=== PATIENT | male | born 1950 | race Caucasian/White ===

== ENCOUNTER 2018-02-07 06:09 | Inpatient (IN) ==
[2018-02-07] MEDS ORDERED: Propofol Inj 500 MG/50 ML Vial ONE (06:18)
[2018-02-07] MEDS ORDERED: Ketamine Inj 50 MG/5 ML Syringe IV.PUSH ONE (06:18)
[2018-02-07] MEDS ORDERED: Bupivacaine/Epinephrine 0.5% Inj 50 ML Vial ONE (06:34)
[2018-02-07] MEDS ORDERED: Gelatin Size 100 Topical Foam ONE (06:34)
[2018-02-07] MEDS ORDERED: Thrombin Topical Soln 5,000 UNIT Vial TOPICAL ONE (06:34)
[2018-02-07] MEDS ORDERED: Chlorhexidine Gluconate 2% 1 Pack (2 Cloths) TOPICAL ONE (06:50)
[2018-02-07] MEDS ORDERED: Metoprolol Tartrate 25 MG Tablet PO ONE (06:50)
[2018-02-07] MEDS ORDERED: ceFAZolin 2 GM Premix Inj 2 GM/50 ML PIGGYBACK IV.SIG SCH (07:00)
[2018-02-07] MEDS ORDERED: Sodium Chlor 0.9% Inj 500 ML IV.SIG SCH (07:00)
[2018-02-07] MEDS ORDERED: Famotidine PF Inj 20 MG/2 ML Vial ONE (07:58)
[2018-02-07] MEDS ORDERED: Lidocaine PF 1% Inj 5 ML Syringe OTHER ONE (08:11)
[2018-02-07] MEDS ORDERED: Glycopyrrolate Inj 1 MG/5 ML Syringe IV.PUSH ONE (08:11)
[2018-02-07] MEDS ORDERED: Esmolol Bolus Inj 100 MG/10 ML Vial IV.PUSH ONE (08:11)
[2018-02-07] MEDS ORDERED: Phenylephrine/NS 1000 MCG/10ML Syringe IV.PUSH ONE (08:11)
[2018-02-07] MEDS ORDERED: Normosol-R pH 7.4 Inj 2,000 ML IV.CONT ONE (08:11)
[2018-02-07] MEDS ORDERED: Neostigmine Inj 5 MG/5 ML Syringe IV.PUSH ONE (08:11)
[2018-02-07] MEDS ORDERED: Magnesium Sulfate Inj 2 GM in Sodium Chlor 0.9% Inj 96 ML IV.SIG PRN (12:43)
[2018-02-07] MEDS ORDERED: Bisacodyl 10 MG Supp RECTAL PRN (12:43)
[2018-02-07] MEDS ORDERED: Aluminum/Magnesium/Simethacone Susp 30 ML UDC PO PRN (12:43)
[2018-02-07] MEDS ORDERED: Potassium Chlor 20 mEq Premix 20 MEQ/100 ML PIGGYBACK IV.SIG PRN (12:43)
[2018-02-07] MEDS ORDERED: Calcium Gluconate Inj 1 GM in Sodium Chlor 0.9% Inj 100 ML IV.SIG PRN (12:43)
[2018-02-07] MEDS ORDERED: Acetaminophen 325 MG Tablet PO PRN (12:43)
[2018-02-07] MEDS ORDERED: Menthol 5.8 MG Lozenge BUCCAL PRN (12:43)
[2018-02-07] MEDS ORDERED: Dextrose 50% in Water 50 ML Vial IV.PUSH PRN (12:49)
--- NOTE | 2018-02-07 12:56 | P.OP ---
- Preoperative Diagnosis (1) Chronic bilateral low back pain with bilateral sciatica (2) Lumbar stenosis with neurogenic claudication (3) Lumbar degenerative disc disease (4) Lumbar facet arthropathy Date of procedure: 02/07/18 Procedure: Lumbar L4-5 interbody fusion; L4-5 decompressive laminectomy; L4-5 pedicle screw fixation; L4-5 interbody cage placement; microsurgical technique Anesthesia: GETA Surgeon: Todd Walker MD Finance Effectiveness Manager: Mónica Lowry Estimated blood loss (mL): 200 Operation and Findings: This was a difficult case due to the patient body habitus and morbid obesity. The bwji-gi-[id number] details of the procedure, indications, alternatives, risks and potential complications were fully discussed with the patient. The patient fully understood. All the questions were answered. No guarantees were given. The patient voiced requesting the procedure and provided informed consents. The patient was offered the alternative of delaying the procedure and continuing with nonsurgical management. Prior to the procedure, the surgical incision was marked in the preoperative surgical holding room, and the procedure, risks, and potential complications revisited with the patient. Placement of electrodes for intraoperative neurophysiological monitoring was completed. The patient was taken to the operative room, and following induction of general anesthesia, endotracheal intubation was performed. A Diaz catheter, bilateral CHAYITO hose and sequential compression devices were placed and kept throughout the procedure. The patient was positioned prone, over a Clay table over a Nagi frame. All pressure in the preoperative surgical holding room points were carefully padded. The eyes were tapped shut after ointment was applied by the anesthesiologist to prevent corneal abrasion. A Juan C hugger was placed over the exposed lower body to maintain control of the core body temperature. The lumbar region was prepped and draped in the usual sterile fashion. Once the patient was positioned, a localizing cross-table lateral x-ray was performed with a C-arm. A left paramedian incision was outlined on the skin approximately 3cm from the midline. The skin incision made with a #10 blade. Small bleeders were controlled with the cautery. The dissection was then carried out into deeper planes and through the thoracolumbar fascia with a Bovie. The intermuscular septum was identified and the mucles were blunted dissected along the septum. The facets and transverse process at the left L4-5 levels were exposed and the proper anatomical landmarks were identified. A microsurgical self-retaining retractor was placed on the incision, and a localizing lateralizing cross-table x-ray was performed. Intraoperative microscope magnification used for further dissection. There was significant facet and ligamentum flavum hypertrophy noted. The left L4-5 medial facet was resected with a drill bit along with the lamina and there was severe foraminal and spinal stenosis from hypertrophied ligamentum flavum and facet along with disc protrusion central and eccentric to the right side which was decompressed. There was disc degeneration along with disc protrusion also leading to the foraminal stenosis. Epidural hemostasis was achieved with bipolar cautery and Gelfoam with thrombin. Subsequently entered into the disc space at the L4-5 level with a #15 blade and malathi were used for discectomy. I then placed PEEK cage packed with local autograft bone and more local autograft bone was packed adjacent to the cage in interspace for added interbody fusion. With placement of the cage, I was able to distract the interspace and opened up the foramen further bilaterally. This point we noted small dural leak less than 1 mm in the dorsal aspect of the thecal sac which was primarily repaired with 4-0 Nurolon stitches and with Valsalva maneuver no CSF leak was further evident. This was reinforced with compressed Gelfoam and subcutaneous fat graft. Subsequently in order to facilitate the fusion and provide stabilization, pedicle screw fixation was undertaken using [place] spine screws on entry point at the left L4 and L5 levels at the junction of the transverse process and facet in the pedicle into the body. Subsequently using AP and lateral fluoroscopy tap and screw placement. The screws were then connected with a josh and locked in place with caps. The construct appeared very secure at this point. The area was then copiously irrigated with Vancomycin solution and powder. The retractors were removed and the bipolar cautery used for hemostasis. The muscle fascia was then approximated using 2-0 Vicryl interrupted stitches and then 3-0 Vicryl subcuticular stitches also placed in interrupted fashion. The final skin closure was completed with Mastisol and Steri-Strips. A sterile dressing was then applied. The patient then turned in supine position, extubated and taken to recovery room. There were no intraoperative complications. All sponge and needle counts were correct at the end of procedure. Estimated blood loss about 200 ml.
[2018-02-07] MEDS ORDERED: fentaNYL Citrate Inj 100 MCG/2 ML Ampul ONE (13:06)
[2018-02-07] MEDS ORDERED: *morphine SULFATE 10 MG/ML PERIprocedure ONLY ONE ×2 (13:34→13:46)
--- NOTE | 2018-02-07 15:36 | XR ---
EXAM DATE: 02/07/2018 12:00 AM EDT AGE/SEX: 67 years / Male INDICATIONS: Fusion L4,L5 with screws and josh placement. CLINICAL DATA: This is the patient's initial encounter. Patient reports that signs and symptoms have been present for 1 day and indicates a pain score of Nonresponsive. MEDICAL/SURGICAL HISTORY: None. None. COMPARISON: No prior exams available for comparison. FINDINGS: Limited 2 projection examination of the lumbar spine reveals unilateral left-sided posterior pedicle screw and longitudinal bars are fixation across L4-5. There is slight retrolisthesis of L4 relative t o L5. The disc spacer appears satisfactorily positioned. The hardware is intact. CONCLUSION: Satisfactory operative appearance Electronically signed by: Raffaele Li MD 02/07/2018 3:34 PM EDT
[2018-02-07] MEDS: Morphine Inj 4 MG/ML Vial IV.PUSH PRN (17:16)
[2018-02-07] MEDS: Insulin NovoLIN Regular Correctional Sugar Inj SQ SCH ×2 (20:33→21:47)
[2018-02-07] MEDS: Senna/Docusate Sodium 8.6/50 MG Tablet PO SCH (21:54)
[2018-02-07 22:38] LABS: Baso % (Auto) 0.2 % (0.0-2.0); Hematocrit 33.1 % (39.0-51.0); Lymph # (Auto) 0.5 th/mm3 (1.0-4.8); Lymph % (Auto) 4.4 % (9.0-44.0); Mean Corpuscular HGB Conc 33.1 % (32.0-36.0); Mean Corpuscular Hemoglobin 30.3 pg (27.0-34.0); Mean Corpuscular Volume 91.3 fL (80.0-100.0); Mean Platelet Volume 7.1 fL (7.0-11.0); Mono # (Auto) 0.6 th/mm3 (0.0-0.9); Mono % (Auto) 4.9 % (0.0-8.0); Neut # (Auto) 11.1 th/mm3 (1.8-7.7); Neut % (Auto) 90.5 % (16.0-70.0); Platelet Count 205 th/mm3 (150-450); Red Blood Count 3.62 mil/mm3 (4.50-5.90); White Blood Count 12.2 th/mm3 (4.0-11.0)
[2018-02-07 22:55] LABS: Calcium 7.8 mg/dL (8.5-10.1); Carbon Dioxide 26.2 meq/L (21.0-32.0); Magnesium 1.6 mg/dL (1.5-2.5); Potassium 4.7 meq/L (3.5-5.1)
[2018-02-08] MEDS: Morphine Inj 4 MG/ML Vial IV.PUSH PRN ×4 (02:51→23:02)
[2018-02-08] MEDS: Senna/Docusate Sodium 8.6/50 MG Tablet PO SCH ×2 (09:06→21:20)
[2018-02-08] MEDS: DESVENLAFAXINE 25 MG PO SCH (09:06)
[2018-02-08] MEDS: amLODIPine 5 MG Tablet PO SCH (09:06)
[2018-02-08] MEDS: Insulin NovoLIN Regular Correctional Sugar Inj SQ SCH ×4 (09:15→22:29)
--- NOTE | 2018-02-08 19:51 | P.PNNS ---
Subjective Interval history: Did well through the day today. Pain controlled better as day progressed. Cabrera dc'd. Up with PT. Physical Exam Vital signs: Vital Signs 02/07/18 19:56 02/08/18 00:00 02/08/18 00:11 Temperature 97.9 F 97.3 F L Pulse Rate 76 69 Respiratory Rate 18 18 Blood Pressure 140/68 128/65 Pulse Oximetry 97 97 94 L 02/08/18 03:39 02/08/18 04:00 02/08/18 04:29 Temperature 98.4 F Pulse Rate 71 Respiratory Rate 16 18 16 Blood Pressure 140/72 Pulse Oximetry 94 L 02/08/18 08:00 02/08/18 12:00 02/08/18 16:00 Temperature 97.2 F L 98.2 F 98.2 F Pulse Rate 59 L 72 72 Respiratory Rate 20 20 20 Blood Pressure 124/72 131/71 131/71 Pulse Oximetry 94 L 92 L 92 L Intake & Output 02/08/18 02/08/18 02/09/18 06:59 18:59 06:59 Intake Total 1600 / 1600 480 / 480 Output Total 3000 / 3000 4 / 4 Balance -1400 / -1400 476 / 476 Weight 116 kg Intake: IV 1200 / 1200 NS + KCl 20 mEq Inj 1,000 ML @ 1000 / 1000 100 mls/hr IV.CONT .Q10H NAGA Rx #:[id number] Ancef Inj 1,000 MG In NS Inj 200 / 200 100 ML @ 200 mls/hr IV.SIG Q8H NAGA Rx#:[id number] Oral 400 / 400 480 / 480 Output: Urine 4 / 4 Urine Amount (Catheter) 3000 / 3000 Indwelling Urethral Catheter 3000 / 3000 - Urinary Catheter Management Indwelling Urethral Catheter Cath placed during this visit: no Reason for continuing: Other continuation reason Assessment and Plan - Plan Weaker to get up but tests to full strength Incision c/d/i Trying to void after cabrera recently dc'd 67yoM pod#1 TLIF. Mobilize w/ PT Patient prefers home with home health (not rehab). Continue mobilization after surgery Overall doing well and pleased with his progress.
[2018-02-09] MEDS: Insulin NovoLIN Regular Correctional Sugar Inj SQ SCH ×4 (08:19→21:01)
[2018-02-09] MEDS: amLODIPine 5 MG Tablet PO SCH (08:20)
[2018-02-09] MEDS: Senna/Docusate Sodium 8.6/50 MG Tablet PO SCH ×2 (08:21→21:00)
[2018-02-09] MEDS: DESVENLAFAXINE 25 MG PO SCH (08:21)
--- NOTE | 2018-02-09 12:03 | P.PNNS ---
Subjective Interval history: Voided, overall doing better, seated in chair with brace Physical Exam Vital signs: Vital Signs 02/08/18 16:00 02/08/18 20:00 02/09/18 00:00 Temperature 98.2 F 98.4 F 98.8 F Pulse Rate 72 85 75 Respiratory Rate 18 Blood Pressure 131/71 145/69 H 119/64 Pulse Oximetry 92 L 95 94 L 02/09/18 02:29 02/09/18 04:00 02/09/18 08:00 Temperature 98.7 F 98.2 F Pulse Rate 77 86 Respiratory Rate 16 18 Blood Pressure 117/68 126/64 Pulse Oximetry 95 93 L 02/09/18 12:00 Temperature 98.8 F Pulse Rate 86 Respiratory Rate 18 Blood Pressure 114/74 Pulse Oximetry 95 Intake & Output 02/08/18 02/09/18 02/09/18 18:59 06:59 18:59 Intake Total 480 / 480 Output Total 4 / 4 Balance 476 / 476 Intake: Oral 480 / 480 Output: Urine 4 / 4 Other: # Voids 2 - Urinary Catheter Management Indwelling Urethral Catheter Cath placed during this visit: no Reason for continuing: Other continuation reason Assessment and Plan - Plan Weaker to get up but tests to full strength Incision c/d/i 67yoM pod#2 TLIF. Mobilize w/ PT Patient prefers home with home health (not rehab). Continue mobilization after surgery Probably d/c on Monday Overall doing well and pleased with his progress.
[2018-02-09 15:52] VITALS: RESP 18
[2018-02-09] MEDS: Morphine Inj 4 MG/ML Vial IV.PUSH PRN (18:29)
[2018-02-10] MEDS: Insulin NovoLIN Regular Correctional Sugar Inj SQ SCH ×2 (10:09→13:57)
[2018-02-10] MEDS: amLODIPine 5 MG Tablet PO SCH (10:09)
[2018-02-10] MEDS: DESVENLAFAXINE 25 MG PO SCH (10:10)
[2018-02-10] MEDS: Senna/Docusate Sodium 8.6/50 MG Tablet PO SCH (10:10)
--- NOTE | 2018-02-10 15:16 | P.PNNS ---
Subjective Interval history: Did well overnight Physical Exam Vital signs: Vital Signs 02/09/18 15:50 02/09/18 20:00 02/10/18 00:00 Temperature 98.5 F 98.2 F 97.7 F Pulse Rate 75 78 88 Respiratory Rate 18 Blood Pressure 105/63 97/59 L 114/65 Pulse Oximetry 94 L 95 95 02/10/18 04:00 02/10/18 08:00 02/10/18 11:10 Temperature 97.6 F 97.8 F Pulse Rate 87 82 Respiratory Rate Blood Pressure 126/70 117/73 Pulse Oximetry 95 94 L 02/10/18 12:00 Temperature 98 F Pulse Rate 74 Respiratory Rate 18 Blood Pressure 115/62 Pulse Oximetry 94 L Intake & Output 02/09/18 02/10/18 02/10/18 18:59 06:59 18:59 Intake Total 1460 / 1460 Output Total 200 / 200 Balance 1460 / 1460 -200 / -200 Intake: Oral 1460 / 1460 Output: Urine 200 / 200 Other: # Voids 4 6 Date of Last Bowel Movement 02/07/18 02/10/18 # Bowel Movements 0 - Urinary Catheter Management Indwelling Urethral Catheter Cath placed during this visit: no Reason for continuing: Other continuation reason Assessment and Plan - Plan Weaker to get up but tests to full strength Incision c/d/i 67yoM pod#3 TLIF. Mobilize w/ PT Discharge home today with home health service including physical therapy. Overall doing well and pleased with his progress.
--- NOTE | 2018-02-10 15:25 | P.DCO ---
- Physical Therapy Order: Evaluate and treat - Occupational Therapy Order: Evaluate and treat - Case Management Consult Yes - Certification I have seen patient Wilmar Toribio on 02/10/18. My clinical findings support the need for the requested home health care services because: post-op status, deconditioned after back surgery needs assistance with PT strengthening and mobilization post-op Deconditioned with increased weakness I certify that my clinical findings support that this patient is homebound because: fresh post-op back surgery, needs assistance with mobility post-op. Post-op weakness
[2018-02-10 16:25] VITALS: BP 116/65; PULSE 72; TEMP 97.9; O2SAT 99
== END 2018-02-10 16:41 | disposition home health service (06) ==
LOC: HSDI 06:09 → N05 15:41
PROVIDERS: ADMIT Neurological Surgery; ATTEND Neurological Surgery
PROC: LAMPLIF (2018-02-07 08:11)